=== PATIENT | male | born 1990 | race Caucasian/White ===

== ENCOUNTER 2024-01-12 13:12 | Emergency (ER) | payer OTHER ==
[~2024-01-12] VITALS: Ht 177.8 cm; Wt 84.9 kg
[2024-01-12] MEDS ORDERED: K-TAB ER20 MEQ PO (14:06)
[2024-01-12] MEDS ORDERED: LASIX40 MG PO (14:06)
[2024-01-12] MEDS ORDERED: KETOROLAC TROMETHAMINE 30 MG/ML VIAL IV ONE (14:15)
[2024-01-12] MEDS ORDERED: SODIUM CHLORIDE 0.9% 1,000 ML IV PRN (14:15)
[2024-01-12] MEDS ORDERED: ondansetron HCL 4 MG/2 ML VIAL IV ONE (14:15)
[2024-01-12 14:17] LABS: BASOPHILS 0.2 % (0-2); EOSINOPHILS 0.4 % (0-6); HEMATOCRIT 48.2 % (35.0-50.0); HEMOGLOBIN 16.5 g/dL (12.0-18.0); LYMPHOCYTES 15.6 % (24-44); MCH 34.3 (27-36); MCHC 34.3 g/dl (30-36); MONOCYTES 5.8 % (0-12); PLATELET COUNT 327 K/uL (140-440); RBC 4.82 M/ul (4.3-5.7); RDW 12.9 (10.5-15.0)
[2024-01-12 14:39] LABS: ALBUMIN 4.1 g/dL (3.4-5.0); ALBUMIN/GLOBULIN RATIO 1.17 (1.1-2.4); ANION GAP 18.2 (7-21); BILIRUBIN, TOTAL 1.1 ng/dL (0.2-1.0); BUN/CREATININE RATIO 11.5 (6.0-28.6); CALCIUM 9.2 mg/dL (8.5-10.1); CREATININE, SERUM 1.13 mg/dL (0.70-1.30); POTASSIUM 4.2 mmol/L (3.5-5.1); PROTEIN, TOTAL 7.6 g/dL (6.4-8.2)
[2024-01-12 15:22] LABS: BILIRUBIN, URINE NEGATIVE (negative); BLOOD/HGB, URINE NEGATIVE (Negative); KETONE, URINE NEGATIVE (Negative); LEUK ESTERASE, URINE NEGATIVE (negative); NITRITE, URINE NEGATIVE (negative); PH, URINE 5.5 (5-7)
[2024-01-12 15:59] LABS: CRYSTALS, URINE NONE SEEN (0-1+); EPITHELIAL CELLS, URINE SQUAMOUS 1+ /lpf (0-1+); RED BLOOD CELLS, URINE 0-1 /hpf (0-5)
[2024-01-12 16:00] LABS: BACTERIA, URINE NONE SEEN /hpf (negative); COLLECTION TYPE, URINE CLEAN CATCH; REFLEX CULTURE, URINE No (No)
--- OUTSIDE RECORDS SUMMARY | 2024-01-12 16:03 | XMS ---
PreManage Notification: MARLENY JOHNSON Security Outreach Professional Events No recent Security Events currently on file CRITERIA MET - [facility] - 2 Visits in 30 Days CARE PROVIDERS ANKITA WOODRUFFONY Internal Medicine Current PHONE: Unknown John has no Care Guidelines for this patient. E.D. VISIT COUNT (12 MO.) [address] [facility] NOTE: Visits indicate total known visits. ED/C VISIT TRACKING (12 MO.) 01/12/2024 13:[address] [facility] [place] TYPE: Emergency COMPLAINT: - CHEST PAIN 01/10/2024 02:01 [facility] TYPE: Emergency COMPLAINT: - I50.9 DIAGNOSES: - Alcohol abuse, uncomplicated - Heart failure, unspecified - Intracardiac thrombosis, not elsewhere classified - Other specified abnormal findings of blood chemistry - Multiple Medical Problems - Request Testing 12/25/2023 01:16 [facility] TYPE: Emergency DIAGNOSES: - Acute sinusitis, unspecified - Other specified abnormal findings of blood chemistry - Head in pain - Head pain - Sinusitis 12/01/2023 15:06 [facility] TYPE: Emergency DIAGNOSES: - Abnormal electrocardiogram [ECG] [EKG] - Acute sinusitis, unspecified - Alcohol abuse, uncomplicated - Gastro-esophageal reflux disease without esophagitis - Other forms of dyspnea - Other specified abnormal findings of blood chemistry - Other specified bacterial agents as the cause of diseases classified elsewhere - Shortness of Breath - SOB INPATIENT VISIT TRACKING (12 MO.) 01/10/2024 02:01 [facility] TYPE: General Medicine COMPLAINT: - I50.9 DIAGNOSES: - Alcohol abuse, uncomplicated - Heart failure, unspecified - Intracardiac thrombosis, not elsewhere classified - Other specified abnormal findings of blood chemistry [email or web address]
[2024-01-12] MEDS ORDERED: TOPROL XL25 MG PO (16:29)
[2024-01-12] MEDS ORDERED: FARXIGA10 MG PO (16:29)
[2024-01-12] MEDS ORDERED: ELIQUIS5 MG PO (16:29)
[2024-01-12] MEDS ORDERED: VALSARTAN40 MG PO (16:29)
[2024-01-12] MEDS ORDERED: ALDACTONE25 MG PO (16:29)
[2024-01-12] MEDS ORDERED: ONDANSETRON ODT4 MG SL (16:34)
[2024-01-12 16:45] VITALS: BP 121/86
== END 2024-01-12 16:45 | disposition home or self-care (01) ==
LOC: ED 13:12
PROVIDERS: Emergency Medicine
DX: R10.30 Lower abdominal pain, unspecified (principal); R11.2 Nausea with vomiting, unspecified; I50.9 Heart failure, unspecified; Z79.899 Other long term (current) drug therapy; Z79.01 Long term (current) use of anticoagulants
CPT/HCPCS: 36415; 74176; 80053; 81001; 83690; 85025; J1885; J2405; J7030